=== PATIENT | male | born 1970 | race Caucasian/White ===

== ENCOUNTER 2020-03-14 11:24 | Outpatient (CLI) | payer OTHER, SELFPAY ==
[2020-03-14 13:23] LABS: Influenza Control Positive
== END 2020-03-14 11:25 | disposition home or self-care (01) ==
LOC: ANHLAB 11:26
PROVIDERS: PCP Internal Medicine; Visit Provider Internal Medicine
DX: R68.89 Other general symptoms and signs (principal)
CPT/HCPCS: 87804

== ENCOUNTER 2020-04-11 07:48 | Outpatient (CLI) | payer OTHER, SELFPAY ==
--- NOTE | ~2020-04-11 | XR_ITS ---
EXAMINATION: XR ankle LT min 3V, XR foot LT 2V EXAM DATE: 04/11/2020 08:40 INDICATION: Initial encounter following injury, with pain of the left foot, ankle TECHNIQUE: Left foot dorsoplantar, lateral projections obtained and reviewed. Left ankle frontal, la teral and oblique projections obtained and reviewed. There is no prior study for comparison. FINDINGS: There is acute closed posttraumatic fracture left 5th metatarsal shaft extending toward th e base of the 4th metatarsal, a Galarza type fracture. These sometimes need surgical fixation. The lef t ankle mortise appears intact. Small inferior calcaneal spur. IMPRESSION: Left Galarza fracture. Reviewed, dictated and finalized at location B. IMPRESSION: Left Galarza fracture. IMPRESSION: Left Galarza fracture.
== END 2020-04-11 07:49 | disposition home or self-care (01) ==
PROVIDERS: PCP Internal Medicine; Visit Provider Internal Medicine
DX: S99.922A Unspecified injury of left foot, initial encounter (principal); S92.812A Other fracture of left foot, initial encounter for closed fracture
CPT/HCPCS: 73610; 73620

== ENCOUNTER 2020-04-13 02:25 | Outpatient (CLI) | payer OTHER, SELFPAY ==
[2020-04-13 18:39] LABS: SARS-CoV-2 RNA PCR Negative
== END 2020-04-13 02:26 | disposition home or self-care (01) ==
LOC: ANHCOVIDDT 02:27
PROVIDERS: PCP Internal Medicine; Visit Provider Podiatrist Foot & Ankle Surgery
DX: Z01.812 Encounter for preprocedural laboratory examination (principal); Z20.828 Contact with and (suspected) exposure to other viral communicable diseases
CPT/HCPCS: 87635; C9803; U0003

== ENCOUNTER 2020-04-15 01:55 | Day surgery (SDC) | payer OTHER, SELFPAY ==
[2020-04-12 09:45] VITALS: BMI 29.7
[2020-04-15] VITALS (8 sets, daily range): BP systolic 119–140; BP diastolic 78–91; PULSE 54–72; RESP 11–20; TEMP 36.1–36.6; O2SAT 99–100
--- NOTE | ~2020-04-15 | XR_ITS ---
EXAMINATION: XR surgery orthopedic EXAM DATE: 04/15/2020 11:34 INDICATION: 5th metatarsal fracture. TECHNIQUE: Fluoroscopy used during XR surgery orthopedic performed by Dr. Juancarlos Metcalf JR MD. The DAP for this procedure was 8.8 cGycm2. FINDINGS: Acute transverse fracture through the left 5th metatarsal shaft, proximally has been bridg ed with a surgical fixation screw in position on the 2 available images. No displacement. Correlate with procedure note. IMPRESSION: Fluoroscopy used during XR surgery orthopedic. Reviewed, dictated and finalized at location B.
--- NOTE | 2020-04-15 07:16 | WPDHPUPDATE1 ---
History and Physical Update Update Date/Time: 04/15/20 07:16 History and Physical has been reviewed, including an updated exam of the patient. There are NO changes in the patient's condition. Risks, benefits, and alternatives have been discussed and questions answered. Patient agrees to proceed with procedure.
--- NOTE | 2020-04-15 08:52 | ECG_ITS ---
Measurements Intervals [place] Rate: 48 P: 21 DC: 162 QRS: 0 QRSD: 103 T: 31 QT: 430 QTc: 387 Interpretive Statements SINUS BRADYCARDIA BASELINE WANDER- III, AVF ABNORMAL ECG Electronically Signed On 04-15-2020 9:37:14 CDT by Jitendra Khan D.O.
[2020-04-15] MEDS: LACTATED RINGERS 1,000 ML 30 ML IV CONT (09:19)
[2020-04-15 09:31] LABS: Anion Gap 7 mmol/L (8-16); Blood Urea Nitrogen 22 mg/dL (9-20); Calcium 9.1 mg/dL (8.4-10.2); Carbon Dioxide 28 mmol/L (22-30); Chloride 101 mmol/L (98-107); Estimated CRCL calculation 88 ml/min; Estimated Glomerular Filt Rate > 60; Glucose 98 mg/dL (75-110); Potassium 3.8 mmol/L (3.4-5.0); Sodium 136 mmol/L (137-145)
--- NOTE | 2020-04-15 09:36 | WPDANESEPPF ---
Anes - Initial Pre Proc Eval Procedure: Operation Date: 04/15/20 10:30 Proposed Procedures p Percutaneous Skeletal Fixation Fifth Metatarsal Left Foot - Juancarlos Metcalf JR, MD Date/Time: 04/15/20 09:36 Surgeon: Juancarlos Metcalf JR, MD Pre Op Diagnosis: Galarza Fracture Left Foot Patient Data Age: 49 Gender: M Height: 6 ft 1 in Weight: 102.6 kg Allergies Allergy/AdvReac Type Severity Reaction Status Date / Time cephalexin Allergy Intermediate Rash Verified 04/15/20 08:55 Home Medications Medication Instructions Recorded Confirmed Type rosuvastatin 20 mg tablet 20 mg PO DAILY #90 tablet 07/06/19 04/15/20 Rx losartan 50 mg tablet 50 mg PO DAILY #90 tablet 09/29/19 04/15/20 Rx syringe with needle, safety 3 mL #20 each 09/29/19 04/12/20 Rx 23 gauge x 1 diclofenac sodium 75 mg 75 mg PO BID #60 tablet 01/25/20 04/15/20 Rx tablet,delayed release chlorthalidone 25 mg tablet 25 mg PO DAILY #30 tablet 02/23/20 04/15/20 Rx cyanocobalamin (vitamin B-12) 1,000 mcg PO DAILY 04/07/20 04/15/20 History 1,000 mcg tablet folic acid 1 mg tablet 1 mg PO DAILY #90 tablet 04/07/20 04/15/20 Rx sulfamethoxazole 800 See Rx Instructions PO .COMPLEX 04/07/20 04/15/20 Rx mg-trimethoprim 160 mg tablet #30 tablet modafinil 200 mg PO BID 04/12/20 04/15/20 History testosterone cypionate 200 mg IM .[id number] 04/12/20 04/15/20 History Laboratory Tests 04/15/20 09:13 Sodium 136 mmol/L L mmol/L (137-145) Potassium 3.8 mmol/L mmol/L (3.4-5.0) Chloride 101 mmol/L mmol/L (98-107) Carbon Dioxide 28 mmol/L mmol/L (22-30) Anion Gap 7 mmol/L L mmol/L (8-16) BUN 22 mg/dL H mg/dL (9-20) Creatinine 1.00 mg/dL mg/dL (0.7-1.3) Estim Creat Clear Calc 88 ml/min ml/min Estimated GFR > 60 (59 - ) Glucose 98 mg/dL mg/dL (75-110) Calcium 9.1 mg/dL mg/dL (8.4-10.2) Patient hx anesthesia problems: none Family hx anesthesia problems: none PMFSH Past Medical History Medical History Benign essential hypertension Chronic folliculitis Encounter for routine adult health examination with abnormal findings Encounter for special screening examination for neoplasm of prostate Hyperlipidemia Galarza fracture On rf technician drug therapy Seborrheic dermatitis of scalp Testicular hypofunction Family History Family History Mother Family history of diabetes mellitus in first degree relative Family history of heart disease in male family member before age 55 Diabetes mellitus Family history of cardiovascular disease Father Family history of cardiovascular disease Social History Social History Smoking status: Never smoker Alcohol intake: current Spiritual care concerns: No Anes - Eval Final PreProcedure Day of Procedure 04/15/20 09:36 Patient weight: overweight Heart: regular rate and rhythm Lungs: clear to auscultation Airway: Mallampati scale class II Neurological: alert and oriented ASA classification: II Anesthetic plan: proceed Anesthesia type and monitoring: general LMA and standard monitoring Informed Consent: The patient's anesthetic plan and its attendant risks and benefits were discussed with the patient/family/POA. Questions were solicited and answers provided to the satisfaction of the patient/family/POA.
[2020-04-15] MEDS: CLINDAMYCIN 900 MG/NS 50 ML 900 MG/50 ML PIGGYBACK 50 MG IVPB (10:43)
--- NOTE | 2020-04-15 11:48 | PM.OP ---
Procedure Note - Brief Procedure Note - Brief Date of procedure: 04/15/20 Pre-op diagnosis: Galarza Fracture Left Foot Post-op diagnosis: same Procedure performed: Percutaneus skeletal fixation of 5th metatarsal fracture left foot Anesthesia: GLMA and local Surgeon: Juancarlos Metcalf JR, DPM Estimated blood loss (mL): 1 Complications: No immediate complications Condition: stable Disposition: same day
--- NOTE | 2020-04-18 01:09 | OP_ITS ---
DATE OF PROCEDURE: 04/15/2020 PREOPERATIVE DIAGNOSIS: Galarza fracture, 5th metatarsal, left foot. POSTOPERATIVE DIAGNOSIS: Galarza fracture, 5th metatarsal, left foot. PROCEDURE: Percutaneous skeletal fixation of the 5th metatarsal fracture, left foot. PATHOLOGY: None. ANESTHESIA: General with local. HEMOSTASIS: Pneumatic ankle tourniquet at 250 mmHg. ESTIMATED BLOOD LOSS: Minimal. MATERIALS USED: 1 Juan C 5.0 mm x 48 mm cannulated screw from the Galarza fracture system, 4-0 Vicryl and 4-0 Prolene. INJECTABLES: 20 mL of Exparel was injected preoperatively. COMPLICATIONS: None. PROCEDURE IN DETAIL: Under mild sedation, the patient was brought into the operating room, placed on the operating table in the lateral decubitus position. A pneumatic ankle tourniquet was placed about the patient's left ankle. Following general anesthesia, local anesthesia was obtained about the left foot and ankle utilizing 20 mL of Exparel. The foot was then scrubbed, prepped, and draped in the usual aseptic manner. An Esmarch bandage was then used to exsanguinate the patient's left foot and the pneumatic ankle tourniquet was then inflated. Surgery began in the following manner. Attention was directed to the lateral aspect of the 5th metatarsal base of the left foot, where a marker was used to identify the landmarks both to the base of the 5th metatarsal as well as the head of the 5th metatarsal. Next, fluoroscopy was used to identify the shaft of the 5th metatarsal utilizing a K-wire external to the 5th metatarsal. The pin position was marked and then a small 2 cm incision was made just proximal to the base of the 5th metatarsal. Next, utilizing fluoroscopy, a K-wire was driven from the base of the 5th metatarsal into the central canal of the 5th metatarsal shaft extending to the distal metaphyseal-diaphyseal junction. Fluoroscopy was used to make sure that the K-wire was properly positioned within the canal of the 5th metatarsal on both the AP and lateral views. Next, a 5.0 mm Lester partially-threaded cannulated screw measuring 4 mm in length was driven from the base of the 5th metatarsal through the shaft of the 5th metatarsal. Excellent compression was noted both clinically and also radiographically. The wound site was then flushed with copious amounts of saline. The temporary fixation was then removed and once again, the screw to the 5th metatarsal base was driven slightly further to make sure that excellent compression was noted. Next, the subcutaneous structures were reapproximated with 4-0 Vicryl, and next the skin was reapproximated with 4-0 Prolene in horizontal mattress suture fashion technique. Upon completion of the procedure, the incision was dressed with Adaptic, 4x4s, Kerlix, and Coban. The pneumatic ankle tourniquet was then deflated and a prompt hyperemic response noted to all digits of the left foot. The posterior splint was then applied to the left lower extremity. The patient did very well with the procedure and anesthesia. He was transferred to the recovery room with vital signs stable and vascular status intact to all toes of the left foot. Following a period of postoperative monitoring, the patient was discharged home with the following postoperative instructions. 1. Keep the dressing clean, dry, and intact. Use a cast protector bag with showers. 2. The patient will be strictly nonweightbearing with knee scooter or crutches. 3. Ice and elevate the left foot when at rest. 4. The patient to contact Dr. Metcalf for all postop care and if any problems arise. 5. Prescriptions were written for Percocet 5/325, dispensed 40 to be taken 1 p.o. q.4-6 hours. Furthermore, Xarelto 10 mg was prescribed to be taken starting 24 hours after surgery for a total of 14
== END 2020-04-15 13:25 | disposition home or self-care (01) ==
PROVIDERS: Anesthesiology; PCP Internal Medicine; Visit Provider Podiatrist Foot & Ankle Surgery
PROC: (CPT 28485; principal; 2020-04-15 10:30)
DX: S92.352A Displaced fracture of fifth metatarsal bone, left foot, initial encounter for closed fracture (principal); X50.0XXA Overexertion from strenuous movement or load, initial encounter; I10 Essential (primary) hypertension; E78.5 Hyperlipidemia, unspecified
CPT/HCPCS: 28476; 36415; 80048; 87635; 93005; C9290; C9803; J2250; J3010; J7120; U0003

== ENCOUNTER 2023-07-23 14:30 | Outpatient (CLI) | payer OTHER, SELFPAY ==
--- NOTE | ~2023-07-23 | CT_ITS ---
EXAMINATION: CT abdomen pelvis w con DATE: 07/23/2023 15:32 INDICATION: Abdominal pain TECHNIQUE: Computed tomography (CT) of the abdomen and pelvis was performed without intravenous contr ast. Automated exposure control and iterative reconstruction technique were employed. The dose-length product was 713.59 mGy-cm. COMPARISON: 11/19/2016. FINDINGS: The visualized bilateral mid and lower lungs are clear. Heart size is normal. Small amount of atheros clerotic coronary artery calcification. No pericardial or pleural effusion. 4 mm low-attenuation cyst versus hemangioma in the right hepatic lobe. Gallbladder, spleen, pancreas and bilateral adrenal gla nds are normal. There are bilateral nonenhancing renal cysts, the largest on the left measuring 2.5 c m. Bowels including the appendix are normal. Small fat-containing umbilical hernia. Bladder is normal . Prostatomegaly measuring 4.6 x 3.7 cm. No free intraperitoneal gas or fluid. No pathologically enla rged abdominal or pelvic lymphadenopathy. Mild scattered degenerative skeletal changes in the spine a nd pelvis. IMPRESSION: 1. No acute intra-abdominal/pelvic process. 2. Prostatomegaly. 3. Small fat-containing umbilical hernia. Reviewed, dictated and finalized at location A. [employer]
[2023-07-23 15:03] LABS: Basophils Percent Auto 0.5 % (0.2-1.2); Eosinophils Absolute Auto 0.1 K/mm3 (0-0.3); Eosinophils Percent Auto 1.3 % (0-4.4); Hematocrit 54.4 % (42.0-52.0); Immature Granulocyte Absolute 0.02 K/mm3 (0.00-0.031); Immature Granulocyte Percent A 0.2 % (0-0.5); Lymphocytes Absolute Auto 2.18 K/mm3 (0.9-3.2); Mean Corpuscular HGB Conc 33.1 g/dl (32-36); Mean Corpuscular Hemoglobin 30.5 pg (26-34); Mean Platelet Volume 10.3 fl (7.4-10.4); Monocytes Absolute Auto 0.9 K/mm3 (0.1-0.6); Monocytes Percent Auto 10.4 % (2.6-8.5); Neutrophils Absolute Auto 5.5 K/mm3 (1.3-6.7); Neutrophils Percent Auto 62.6 % (45.5-73.1); Platelet Count Result 210 k/mm3 (150-375); Red Blood Count 5.91 M/mm3 (4.6-6.20); Red Cell Distribution Width 13.1 % (11.5-14.5); White Blood Count 8.7 K/mm3 (4.5-10.0)
[2023-07-23 15:06] LABS: Appearance Urine Clear (Clear); Bilirubin Urine Negative (Negative); Blood Urine Negative (Negative); Color Urine Yellow (Yellow); Glucose Urine UA Negative (Negative); Ketones Urine Negative (Negative); Leukocyte Esterase Ur Negative LEU/UL (Negative); Nitrate Urine Negative (Negative); Protein Urine Negative (Negative); Specific Grav Ur 1.006 (1.001-1.035); Urobilinogen Urine 0.2 mg/dL (<2.0)
[2023-07-23 15:14] LABS: Alanine Aminotransferase 30 U/L (6-50); Albumin Level 4.2 g/dL (3.5-5.1); Alkaline Phosphatase 40 U/L (38-126); Anion Gap 8 mmol/L (8-16); Aspartate Amino Transferase 33 U/L (17-59); Bilirubin,Total 1.8 mg/dL (0.2-1.3); Blood Urea Nitrogen 18 mg/dL (9-20); Calcium 8.8 mg/dL (8.4-10.2); Carbon Dioxide 30 mmol/L (22-30); Chloride 99 mmol/L (98-107); Estimated Glomerular Filt Rate > 60; Glucose 68 mg/dL (65-110); Potassium 3.6 mmol/L (3.4-5.0); Sodium 137 mmol/L (137-145)
[2023-07-23 15:21] LABS: Add Urine Microscopic? NO
[2023-07-23 15:23] LABS: Estimated Glomerular Filt Rate > 60
[2023-07-23 16:07] LABS: LDL Cholesterol Direct 69 mg/dL
[2023-07-23 16:08] LABS: Cholesterol 126 mg/dL (0-200); HDL Direct 40 mg/dL; Triglycerides 198 mg/dL (<150)
== END 2023-07-23 14:31 | disposition home or self-care (01) ==
PROVIDERS: PCP Internal Medicine; Visit Provider Internal Medicine
DX: R10.9 Unspecified abdominal pain (principal); H92.09 Otalgia, unspecified ear; Z79.899 Other long term (current) drug therapy; R30.0 Dysuria; H92.02 Otalgia, left ear; N40.0 Benign prostatic hyperplasia without lower urinary tract symptoms; K42.9 Umbilical hernia without obstruction or gangrene
CPT/HCPCS: 36415; 74177; 80053; 80061; 81003; 85025; Q9967